=== PATIENT | female | born 2000 | race Caucasian/White ===

== ENCOUNTER 2023-02-06 22:57 | Emergency (ER) | payer BC, MEDICAID ==
[~2023-02-06] VITALS: Ht 160 cm; Wt 58.5 kg
[~2023-02-06 22:57] MED LIST: NO MEDS
[2023-02-06 23:27] VITALS: BP 138/80; PULSE 103; RESP 16; TEMP 102.8; O2SAT 100
--- NOTE | 2023-02-06 23:34 | NUR ---
PT. WALKED TO BED 05
[2023-02-06] MEDS ORDERED: ACETAMINOPHEN 325 MG TAB ONE (23:39)
[2023-02-06] MEDS ORDERED: ACETAMINOPHEN 325 MG TAB PO ONE (23:40)
--- NOTE | 2023-02-06 23:55 | NUR ---
Patient being evaluated by physician at bedside.
[2023-02-07] MEDS ORDERED: NACL 0.9% 2,000 ML IV SCH
--- NOTE | 2023-02-07 00:08 | NUR ---
RAD AT BEDSIDE
[2023-02-07 00:12] LABS: BASOPHILS # (AUTO) 0.1 K/uL (0.00-0.22); BASOPHILS % (AUTO) 0.6 % (0.0-2.0); EOSINOPHILS # (AUTO) 0.1 K/uL (0-0.4); EOSINOPHILS % (AUTO) 0.7 % (0.0-4.0); HEMATOCRIT 30.8 % (36-48); HEMOGLOBIN 10.3 g/dL (12.0-16.0); LYMPHOCYTES % (AUTO) 21.6 % (20.5-51.1); MEAN CORPUSCULAR HEMOGLOBIN 30 pg (27-31); MEAN CORPUSCULAR HGB CONC 33 g/dL (33-37); MEAN CORPUSCULAR VOLUME 89.6 fL (80-94); MONOCYTES # (AUTO) 0.8 K/uL (0.8-1.0); NEUTROPHILS # (AUTO) 9.7 K/uL (1.8-7.7); NEUTROPHILS % (AUTO) 71.1 % (42.2-75.2); PLATELET COUNT (AUTO) 392 K/uL (140-450); RED BLOOD CELL COUNT(AUTO) 3.44 MIL/uL (4.20-5.40); RED CELL DISTRIBUTION WIDTH 14.1 % (11.6-13.7); WHITE BLOOD COUNT (AUTO) 13.7 K/uL (4.5-11.0)
[2023-02-07] MEDS ORDERED: cefTRIAXone 1,000 MG VIAL ONE (00:20)
[2023-02-07 00:34] LABS: ALBUMIN 3.7 g/dL (3.4-5.0); ANION GAP 12.8 (8-16); ASPARTATE AMINOTRANSFERASE 21 U/L (15-37); CARBON DIOXIDE 27.3 mmol/L (21-32); CHLORIDE 101 mmol/L (98-107); CREATININE 0.7 mg/dL (0.6-1.3); GFR ARICAN-AMERICAN 137 mL/min (>90); GLUCOSE 83 mg/dL (74-106); POTASSIUM 3.1 mmol/L (3.5-5.1); SODIUM SERUM 138 mmol/L (136-145); TOTAL BILIRUBIN 0.7 mg/dL (0.0-1.0); UREA NITROGEN, BLOOD 11 mg/dL (7-18)
[2023-02-07 00:50] LABS: APPEARANCE,URINE CLEAR (CLEAR); BILIRUBIN,URINE NEGATIVE (NEGATIVE); BLOOD, URINE TRACE-I (NEGATIVE); COLOR,URINE YELLOW (YELLOW); LEUKOCYTE ESTERASE ,URINE NEGATIVE (NEGATIVE); NITRITE, URINE NEGATIVE (NEGATIVE); UGLUCOSE NEGATIVE (NEGATIVE)
[2023-02-07 01:04] LABS: RBC,URINE 0-5 /HPF (0-5)
[2023-02-07] MEDS ORDERED: POTASSIUM CHLORIDE 10 MEQ TABER PO ONE (01:10)
--- NOTE | 2023-02-07 02:15 | NUR ---
Stu spivey in ED - 02/07/23 at 0218 by [email or web address] ermd at bedside re-evaluating the pt.
--- NOTE | 2023-02-07 02:16 | NUR ---
Note patric in EDM - 02/07/23 at 0218 by [email or web address] pt resting on bed. difficult to arouse. chest rise and fall symmetrical. on monitor. bed locked in lowest position , side rails x2 for niru.
[2023-02-07] MEDS ORDERED: SULF-59 PO (03:06)
[2023-02-07] MEDS ORDERED: CEPH-588 PO (03:06)
[2023-02-07 03:30] VITALS: BP 120/76; PULSE 88; RESP 20; TEMP 98.7; O2SAT 100
--- NOTE | 2023-02-07 03:30 | NUR ---
Patient discharged with v/s stable. Written and verbal after care instructions given and explained. Patient alert, oriented and verbalized understanding of instructions. Ambulatory with steady gait. All questions addressed prior to discharge. ID band removed. Patient advised to follow up with PMD. Rx given to pt. Patient educated on indication of medication including possible reaction and side effects. Opportunity to ask questions provided and answered.
== END 2023-02-07 03:30 | disposition home or self-care (01) ==
LOC: MED 22:57
DX: L02.31 Cutaneous abscess of buttock (principal); L03.317 Cellulitis of buttock; E87.6 Hypokalemia; N30.01 Acute cystitis with hematuria; R00.0 Tachycardia, unspecified; Z79.2 Long term (current) use of antibiotics
CPT/HCPCS: 10160; 36415; 71045; 80053; 81001; 81002; 81025; 83605; 84484; 85025; 87040; 87086; 93005; 96365; 99291; J0696; J7030; Q0092; 99285

== ENCOUNTER 2023-05-13 18:50 | Emergency (ER) | payer BC, MEDICAID ==
[~2023-05-13] VITALS: Ht 160 cm; Wt 54.4 kg
[~2023-05-13 18:50] MED LIST changes: +CEPH-588 PO; +SULF-59 PO
[2023-05-13 19:33] VITALS: BP 116/76; PULSE 72; RESP 16; TEMP 98.4; O2SAT 98
[2023-05-13 20:59] LABS: APPEARANCE,URINE CLEAR (CLEAR); BILIRUBIN,URINE NEGATIVE (NEGATIVE); BLOOD, URINE TRACE-I (NEGATIVE); COLOR,URINE YELLOW (YELLOW); LEUKOCYTE ESTERASE ,URINE NEGATIVE (NEGATIVE); NITRITE, URINE NEGATIVE (NEGATIVE); PROTEIN,URINE NEGATIVE (NEGATIVE); UGLUCOSE NEGATIVE (NEGATIVE); UROBILINOGEN,URINE 0.2 EU/dL (0.2 - 1)
[2023-05-13 21:20] LABS: BACTERIA,URINE FEW /HPF (None Seen); RBC,URINE 0-5 /HPF (0-5); SQUAMOUS EPITHELIAL CELL,UR 0-3 (FEW) /LPF (0-3 (FEW)); WBC,URINE 0-5 /HPF (0-5)
== END 2023-05-13 23:12 | disposition home or self-care (01) ==
LOC: MED 18:50
DX: O26.892 Other specified pregnancy related conditions, second trimester (principal); Z3A.20 20 weeks gestation of pregnancy
CPT/HCPCS: 76805; 81001; 99284

== ENCOUNTER 2024-04-24 03:45 | Emergency (ER) | payer BC, MEDICAID, OTHER ==
[~2024-04-24] VITALS: Ht 160 cm; Wt 59.0 kg
[2024-04-24 03:48] VITALS: BP 119/84; PULSE 86; RESP 16; TEMP 97.7; O2SAT 99
[2024-04-24 03:57] VITALS: BP 119/84; PULSE 86; RESP 16; TEMP 97.7; O2SAT 97
[2024-04-24] MEDS: ONDANSETRON 4 MG/2 ML VIAL IVP ONE (04:18)
[2024-04-24] MEDS: NACL 0.9% 1,000 ML IV ONE (04:18)
[2024-04-24 04:36] VITALS: O2SAT 99
== END 2024-04-24 06:19 | disposition home or self-care (01) ==
LOC: MED 03:45
DX: S09.90XA Unspecified injury of head, initial encounter (principal); F10.129 Alcohol abuse with intoxication, unspecified; Z79.899 Other long term (current) drug therapy; Y90.9 Presence of alcohol in blood, level not specified; W01.198A Fall on same level from slipping, tripping and stumbling with subsequent striking against other object, initial encounter; Y92.89 Other specified places as the place of occurrence of the external cause; Y93.89 Activity, other specified; Y99.8 Other external cause status
CPT/HCPCS: 70450; 81025; 96361; 96374; 99285; J2405; J7030